=== PATIENT | male | born 1985 | race Caucasian/White ===

== ENCOUNTER 2023-02-09 13:09 | Outpatient (CLI) | payer MEDICAID, SELFPAY | END 2023-02-09 13:10 | disposition home or self-care (01) | LOC: INJ CL 13:13 | PROVIDERS: PCP Physician Assistant; Visit Provider Family Medicine | DX: M54.16 Radiculopathy, lumbar region (principal); M51.36 Other intervertebral disc degeneration, lumbar region | CPT/HCPCS: 62323; J0702; Q9966 ==